=== PATIENT | female | born 1995 | race Caucasian/White ===

== ENCOUNTER → 2017-03-19 | Outpatient (REF) | LOC: WSOH 09:00 | DX: Z02.89 Encounter for other administrative examinations (principal) ==

== ENCOUNTER 2018-12-24 09:45 | Emergency (ER) | payer BC ==
[~2018-12-24] VITALS: Ht 162.6 cm; Wt 90.9 kg
[~2018-12-24 09:45] MED LIST: PAMELOR 10MG10 MG PO; PREDNISONE20 MG PO
[2018-12-24 09:48] VITALS: TEMP 97.1
[2018-12-24 10:38] VITALS: BP 108/71; PULSE 77
== END 2018-12-24 10:41 | disposition home or self-care (01) ==
LOC: COL.ER 09:45
DX: T17.228A Food in pharynx causing other injury, initial encounter (principal); G20 Parkinson's disease; Z90.49 Acquired absence of other specified parts of digestive tract

== ENCOUNTER → 2019-05-09 | Outpatient (CLI) | payer BC | LOC: COL.RAD 12:23 | DX: M53.2X2 Spinal instabilities, cervical region (principal) ==

== ENCOUNTER 2021-02-11 08:11 | Emergency (ER) | payer BC ==
[~2021-02-11] VITALS: Ht 162.6 cm; Wt 88.6 kg
[2021-02-11 08:28] VITALS: TEMP 98.2
[2021-02-11 09:09] LABS: BASO % 0.4 % (0.0-2.0); EOS # 0.1 (0.0-0.7); EOS % 1.8 % (0-4.0); GRAN # 5.2 (1.4-6.5); GRAN % 68.9 % (42.2-75.2); HEMATOCRIT 37.9 % (37.0-47.0); HEMOGLOBIN 11.7 g/dl (12.5-16.0); LYMPH # 1.6 (1.2-3.4); LYMPH % 21.2 % (20.0-51.0); MEAN CELL VOLUME 84 fl (80.0-100.0); MEAN CORPUSCULAR HEMOGLOBIN 26 pg (27.0-31.0); MEAN CORPUSCULAR HGB CONC 31 g/dl (33.0-37.0); MEAN PLATELET VOLUME 9.7 fl (7.4-10.4); MONO # 0.6 (0.1-0.6); MONO % 7.4 % (1.7-9.3); PLATELET COUNT 211 K/mm3 (130-400); RED BLOOD COUNT 4.54 M/mm3 (4.10-5.30); REDCELL DISTRIBUTION WIDTH-CV 14.6 % (11.5-14.5)
[2021-02-11 09:19] LABS: ALANINE AMINOTRANSFERASE 12 U/L (4-34); ALBUMIN 3.7 gm/dL (3.5-5.0); ALKALINE PHOSPHATASE 72 U/L (50-136); ANION GAP 7 mmol/L (7-16); AST,SGOT 20 U/L (15-37); BILIRUBIN,TOTAL 0.2 mg/dL (0.0-1.0); BLOOD UREA NITROGEN 14 mg/dL (7-17); CALCIUM 8.7 mg/dL (8.4-10.2); CARBON DIOXIDE 23 mmol/L (22-30); CHLORIDE 108 mmol/L (98-107); CREATININE, serum 0.66 (0.52-1.25); GLUCOSE 95 mg/dL (74-106); POTASSIUM 4.1 mmol/L (3.4-5.0); SODIUM 138 mmol/L (137-145)
[2021-02-11 09:43] LABS: TROPONIN-I < 0.012 ng/mL (0.000-0.035)
[2021-02-11] MEDS ORDERED: PREDNISONE20 MG PO (10:26)
[2021-02-11 10:45] VITALS: BP 120/68; PULSE 80
== END 2021-02-11 10:48 | disposition home or self-care (01) ==
LOC: COL.ER 08:11
PROVIDERS: Family Medicine
DX: R09.1 Pleurisy (principal); R06.02 Shortness of breath

== ENCOUNTER → 2021-03-10 | Outpatient (CLI) | payer BC | LOC: COL.RAD 12:14 | DX: R05 Cough (principal); R06.02 Shortness of breath; R07.9 Chest pain, unspecified | CPT/HCPCS: Q9967 ==

== ENCOUNTER → 2021-04-07 | Outpatient (CLI) | payer BC | LOC: COL.VAS 12:54 | DX: R06.02 Shortness of breath (principal) ==